=== PATIENT | male | born 1930 | race African-American/Black ===

== ENCOUNTER 2016-07-30 23:05 | Emergency (ER) | payer OTHER ==
[~2016-07-30] VITALS: Ht 167.6 cm; Wt 59.0 kg
[~2016-07-30 23:05] MED LIST: FLUT16SP2 NS; HYDR-3326 PO; IPRA21SP NS; LOVA40TA2 PO; TEMA15CA5 PO
--- NOTE | 2016-07-30 23:13 | NUR ---
PT BIB [facility] WITH A C/O SYNCOPE AFTER SITTING ON THE FLOOR AND VOMITTING. PT IS AA&O X3. PT IS ON THE MONITOR AND CONTINUOUS PULSE OX. DR. MONTESINOS IS AT THE BEDSIDE.
[2016-07-30] MEDS ORDERED: IV SET PRIMARY 1 EA INFUS.SET MC ONE (23:17)
[2016-07-30] MEDS ORDERED: IV NS 0.9% 500 ML IV ONE (23:17)
[2016-07-30] MEDS ORDERED: ONDANSETRON HCL/PF 4 MG/2 ML VIAL ONE (23:17)
[2016-07-30] MEDS ORDERED: IV NS 0.9% 500 ML BAG IV ONE (23:30)
[2016-07-30] MEDS ORDERED: ONDANSETRON HCL/PF 4 MG/2 ML VIAL IVP ONE (23:30)
[2016-07-30 23:36] LABS: BASOPHILS % (AUTO) 0.3 % (0.0-2.0); EOSINOPHILS # (AUTO) 0.1 /CMM (0.0-0.7); EOSINOPHILS % (AUTO) 1.6 % (0.0-6.0); HEMATOCRIT 42 % (39-51); HEMOGLOBIN 13.9 g/dL (13.5-17.5); LYMPHOCYTES # (AUTO) 1.8 /CMM (0.8-4.8); LYMPHOCYTES % (AUTO) 20.4 % (20.0-44.0); MEAN CORPUSCULAR HEMOGLOBIN 31 PG (26.0-33.0); MEAN CORPUSCULAR HGB CONC 33 g/dl (31.0-36.0); MEAN CORPUSCULAR VOLUME 95 fL (80-96); MONOCYTES # (AUTO) 0.3 /CMM (0.1-1.30); MONOCYTES % (AUTO) 3.6 % (2.0-12.0); NEUTROPHILS # (AUTO) 6.4 /CMM (1.8-8.9); NEUTROPHILS % (AUTO) 74.1 % (43.0-81.0); PLATELET COUNT (AUTO) 238 /CMM (150-450); RED BLOOD CELL COUNT(AUTO) 4.43 MIL/uL (4.5-6.0); WHITE BLOOD COUNT (AUTO) 8.6 K/uL (4.3-11.0)
[2016-07-30 23:46] LABS: CALCIUM, SERUM 9.3 mg/dL (8.5-10.1); CARBON DIOXIDE 29 mmol/L (21-32); CHLORIDE 97 mmol/L (98-107); CREATININE 0.9 mg/dL (0.6-1.3); GLUCOSE 114 mg/dL (74-106); POTASSIUM 3.7 mmol/L (3.5-5.1); SODIUM SERUM 132 mmol/L (136-145); UREA NITROGEN, BLOOD 14 mg/dL (7-18)
[2016-07-30 23:53] LABS: ALANINE AMINOTRANSFERASE 35 U/L (12-78); ALBUMIN 3.8 g/dL (3.4-5.0); ALKALINE PHOSPHATASE 53 U/L (46-116); ASPARTATE AMINOTRANSFERASE 29 U/L (15-37); BILIRUBIN,DIRECT 0.1 mg/dL (0.0-0.2); BILIRUBIN,TOTAL 0.5 mg/dL (0.2-1.0); TOTAL PROTEIN, SERUM 7.5 g/dL (6.4-8.2)
[2016-07-30 23:55] LABS: TROPONIN I < 0.017 ng/mL (0.00-0.056)
[2016-07-31] MEDS ORDERED: ONDANSETRON HCL/PF 4 MG/2 ML VIAL ONE ×2 (00:11→01:12)
--- NOTE | 2016-07-31 00:17 | NUR ---
PT'S IS LEAVING AND WOULD LIKE TO BE CALLED IF PT IS GOING TO [facility].
[2016-07-31 00:24] LABS: PROTHROMBIN TIME 10.4 SECS (9.5-12.7)
[2016-07-31] MEDS ORDERED: ONDANSETRON HCL/PF 4 MG/2 ML VIAL IV ONE ×2 (00:30→01:30)
--- NOTE | 2016-07-31 00:50 | NUR ---
CALLING CESAR AT [facility]
--- NOTE | 2016-07-31 01:00 | NUR ---
UNABLE TO OBTAIN A URINE SAMPLE. DR. MONTESINOS IS AWARE.
--- NOTE | 2016-07-31 01:19 | NUR ---
PT VOMITTED X1. APPROX 300 ML YELLOW EMESIS NOTED.
--- NOTE | 2016-07-31 01:23 | NUR ---
DR. MONTESINOS IS SPEAKING TO THE [place] DOCTOR.
--- NOTE | 2016-07-31 01:27 | NUR ---
DR. KAVON [facility] IS THE ACCEPTING MD.
[2016-07-31] MEDS ORDERED: METOCLOPRAMIDE HCL 10 MG/2 ML VIAL ONE (01:42)
--- NOTE | 2016-07-31 01:43 | NUR ---
PT VOMITTED X2. PT WAS CLEANED. WARM BLANKETS X3 COVERED PT. PT STATED THAT HE FELT A LITTLE BETTER.
--- NOTE | 2016-07-31 01:46 | NUR ---
VERBAL ORDERS PER DR. MONTESINOS TO GIVEN REGLAN 10MG IV ONE TIME FOR FEELING NAUSEOUS.
[2016-07-31] MEDS ORDERED: METOCLOPRAMIDE HCL 10 MG/2 ML VIAL IV ONE (02:00)
--- NOTE | 2016-07-31 02:05 | NUR ---
CALLED [facility] RE: PT TRANSFER. THEY ARE IN THE MIDDLE OF SETTING UP TRANFER. THEY WILL CALL BACK WHEN EVERYTHING IS COMPLETE.
--- NOTE | 2016-07-31 02:26 | NUR ---
PT'S O2 SAT IS 89% ON RA. PT PLACED ON 2L O2 VIA NC. DR. MONTESINOS IS AWARE
--- NOTE | 2016-07-31 03:12 | NUR ---
REPORT GIVEN TO TRISTON BENEDICT AT [facility]. PT IS GOING TO ROOM 4060.
--- NOTE | 2016-07-31 03:15 | NUR ---
PT PLACED ON 8L VIA SIMPLE MASK. PT IS SATURAING AT 95%. DR. MONTESINOS IS AWARE.
--- NOTE | 2016-07-31 03:51 | NUR ---
REPORT GIVEN TO [place] RN - TRANSPORT NURSE.
--- NOTE | 2016-07-31 03:51 | NUR ---
MARICHUY CALLED FROM [facility] FOR UPDATE.
[2016-07-31] MEDS ORDERED: ACETAMINOPHEN 650 MG/SUPP.RECT RC ONE ×2 (03:52→04:00)
--- NOTE | 2016-07-31 04:00 | NUR ---
PT HAD PULLED OFF ALL THE BLANKETS AND C/O FEELING WARM. PT WAS WARM TO TOUCH. ORAL TEMP TAKEN AND IS 102.[address] MONTESINOS WAS NOTIFIED. NEW ORDERS WERE GIVEN AND CARRIED OUT. PT HAD URINATED ON THE BED. LINENS CHANGED AND PT WAS CHANGED INTO A DIAPER.
[2016-07-31 04:06] VITALS: BP 124/83
== END 2016-07-31 04:14 ==
LOC: ER 23:07
DX: R55 Syncope and collapse (principal); E87.1 Hypo-osmolality and hyponatremia; E11.9 Type 2 diabetes mellitus without complications; F03.90 Unspecified dementia, unspecified severity, without behavioral disturbance, psychotic disturbance, mood disturbance, and anxiety; I10 Essential (primary) hypertension; Z88.8 Allergy status to other drugs, medicaments and biological substances
CPT/HCPCS: 36415; 70450; 71010; 80048; 80076; 82962; 84484; 85025; 85730; 93005; 96374 ×2; 96376; 99285; A4606; J2405 ×3; J2765; J7040; Z7610

== ENCOUNTER 2017-12-08 16:16 | Emergency (ER) | payer OTHER, MEDICAID ==
[~2017-12-08] VITALS: Ht 177.8 cm; Wt 52.2 kg
[~2017-12-08 16:16] MED LIST changes: -HYDR-3326 PO; +HYDR-3974 PO
--- NOTE | 2017-12-08 16:20 | NUR ---
BIB RA FOR SOB, NAD NOTED, VSS, RESP EVEN AND UNLABORED, PT WAS PUT ON A HOSPITAL GOWN AND MONITOR, WAITING FOR MD HERNANDEZ.
--- NOTE | 2017-12-08 17:06 | NUR ---
PUT IN FIRST CALL WITH [facility] - REQUESTED RECORDS FOR PATIENTS VISIT WITH [facility] TODAY AND A SNAPSHOT OF MEDICAL HISTORY
[2017-12-08 17:25] LABS: CALCIUM, SERUM 8.8 mg/dL (8.5-10.1); CARBON DIOXIDE 26 mmol/L (21-32); CHLORIDE 101 mmol/L (98-107); CREATININE 0.7 mg/dL (0.6-1.3); GLUCOSE 98 mg/dL (74-106); POTASSIUM 3.7 mmol/L (3.5-5.1); SODIUM SERUM 140 mmol/L (136-145); UREA NITROGEN, BLOOD 29 mg/dL (7-18)
[2017-12-08 17:31] LABS: BASOPHILS % (AUTO) 0.1 % (0.0-2.0); EOSINOPHILS % (AUTO) 0.1 % (0.0-6.0); HEMATOCRIT 42 % (39-51); HEMOGLOBIN 13.4 g/dL (13.5-17.5); LYMPHOCYTES # (AUTO) 0.2 /CMM (0.8-4.8); LYMPHOCYTES % (AUTO) 1.6 % (20.0-44.0); MEAN CORPUSCULAR HEMOGLOBIN 31 PG (26.0-33.0); MEAN CORPUSCULAR HGB CONC 32 g/dl (31.0-36.0); MEAN CORPUSCULAR VOLUME 96 fL (80-96); MONOCYTES # (AUTO) 0.3 /CMM (0.1-1.30); MONOCYTES % (AUTO) 1.9 % (2.0-12.0); NEUTROPHILS # (AUTO) 14.2 /CMM (1.8-8.9); NEUTROPHILS % (AUTO) 96.3 % (43.0-81.0); PLATELET COUNT (AUTO) 275 /CMM (150-450); RDW COEFFICIENT OF VARIATION 13.2 (11.5-15.0); RED BLOOD CELL COUNT(AUTO) 4.32 MIL/uL (4.5-6.0); WHITE BLOOD COUNT (AUTO) 14.8 K/uL (4.3-11.0)
[2017-12-08 17:32] LABS: TROPONIN I < 0.017 ng/mL (0.00-0.056)
[2017-12-08 17:38] LABS: INR 1.07 (0.87-1.13)
[2017-12-08 17:41] LABS: ALANINE AMINOTRANSFERASE 14 U/L (12-78); ALBUMIN 2.9 g/dL (3.4-5.0); ALKALINE PHOSPHATASE 43 U/L (46-116); ASPARTATE AMINOTRANSFERASE 17 U/L (15-37); B-TYPE NATRIURETIC PEPTIDE 431 PG/ML (0-125); BILIRUBIN,DIRECT 0.1 mg/dL (0.0-0.2); BILIRUBIN,TOTAL 0.6 mg/dL (0.2-1.0); TOTAL PROTEIN, SERUM 7.3 g/dL (6.4-8.2)
--- NOTE | 2017-12-08 18:13 | NUR ---
MANDY LEFT CONTACT # [phone]
[2017-12-08] MEDS ORDERED: IV NS 0.9% 500 ML BAG IV ONE (18:30)
--- NOTE | 2017-12-08 18:31 | NUR ---
CALLED [facility] FOR MAGGIE MALLORY - AWAITING CALL BACK
[2017-12-08] MEDS ORDERED: LEVOFLOXACIN 750 MG /D5W 150ML 150 ML IV ONE (20:30)
[2017-12-08] MEDS ORDERED: PIPERACILLIN /TAZOBACTAM 3.375 G in IV D5W 50 ML IV ONE (20:30)
--- NOTE | 2017-12-08 22:00 | NUR ---
[facility] - STILL WAITING ON TRANSFER DETAILS
--- NOTE | 2017-12-08 22:19 | NUR ---
SPOKE WITH [facility] - PATIENT WILL BE TRANSFERRED TO [facility] - RM [address] NEGRO NUMBER FOR REPORT IS [facility] EN ROUTE WITH ETA [phone]
[2017-12-08 23:01] VITALS: BP 114/61
--- NOTE | 2017-12-08 23:07 | NUR ---
REPORT GIVEN TO TRISTON ESCAMILLA [facility]
== END 2017-12-08 23:33 | disposition short-term general hospital (02) ==
LOC: ER 16:17
DX: R13.0 Aphagia (principal); R79.89 Other specified abnormal findings of blood chemistry; A41.9 Sepsis, unspecified organism; J15.9 Unspecified bacterial pneumonia; D72.829 Elevated white blood cell count, unspecified; R05 Cough; I10 Essential (primary) hypertension; E11.9 Type 2 diabetes mellitus without complications; K21.9 Gastro-esophageal reflux disease without esophagitis; E78.5 Hyperlipidemia, unspecified; F03.90 Unspecified dementia, unspecified severity, without behavioral disturbance, psychotic disturbance, mood disturbance, and anxiety; R13.10 Dysphagia, unspecified; I25.10 Atherosclerotic heart disease of native coronary artery without angina pectoris; Z95.5 Presence of coronary angioplasty implant and graft; Z88.1 Allergy status to other antibiotic agents; Z88.8 Allergy status to other drugs, medicaments and biological substances; Z88.9 Allergy status to unspecified drugs, medicaments and biological substances
CPT/HCPCS: 36415; 71045; 71250; 80048; 80076; 83605; 83880; 84484; 85025; 85730; 87040 ×2; 93005; 96365; 96367; 99291; A4606; J1956; J2543; J7040; J7060; Z7610